=== PATIENT | female | born 1995 ===

== ENCOUNTER 2021-02-03 05:45 | Day surgery (SDC) | payer OTHER | END 2021-02-03 13:00 | disposition home or self-care (01) | LOC: CIR.AMB 05:45 → O/R 05:45 → CIR.AMB 07:00 | PROVIDERS: ATTEND Obstetrics & Gynecology | DX: D26.0 Other benign neoplasm of cervix uteri (principal); Z20.822 Contact with and (suspected) exposure to COVID-19 ==